=== PATIENT | male | born 1990 | race Caucasian/White ===

== ENCOUNTER 2018-04-01 14:28 | Emergency (ER) | payer MEDICAID ==
[~2018-04-01] VITALS: Ht 167.6 cm; Wt 100.0 kg
[2018-04-01] MEDS ORDERED: MORPHINE SULFATE 4 MG/ML, 1ML ONE ×2 (14:53→17:07)
[2018-04-01] MEDS ORDERED: ONDANSETRON 2MG/ML, 2ML ONE (14:53)
[2018-04-01] MEDS ORDERED: SODIUM CHLORIDE FLUSH 10ML SYR IVF ONE (15:00)
[2018-04-01] MEDS ORDERED: DIPHENHYDRAMINE 50 MG/ML, 1ML IVPush ONE (15:00)
[2018-04-01] MEDS ORDERED: ONDANSETRON 2MG/ML, 2ML IVPush ONE (15:00)
[2018-04-01] MEDS: MORPHINE SULFATE 4 MG/ML, 1ML IVPush PRN ×2 (15:01→17:37)
[2018-04-01] MEDS ORDERED: DIPHENHYDRAMINE 50 MG/ML, 1ML ONE (15:15)
[2018-04-01 16:45] VITALS: BP 132/86
== END 2018-04-01 17:51 ==
LOC: ED 15:54
DX: S16.1XXA Strain of muscle, fascia and tendon at neck level, initial encounter (principal); X58.XXXA Exposure to other specified factors, initial encounter; Y93.89 Activity, other specified; Y92.89 Other specified places as the place of occurrence of the external cause; Y99.8 Other external cause status
CPT/HCPCS: 70450; 70496; 70498; 72125; 96374; 96375; 96376; 99284; J1200; J2405